=== PATIENT | female | born 1955 | race Caucasian/White ===

== ENCOUNTER 2021-09-18 10:38 | Outpatient (CLI) | payer OTHER, SELFPAY ==
[2021-09-18 17:12] LABS: Albumin* 3.9 g/dL (3.3-5.0); Chloride* 102 mmol/L (96-114); Sodium* 135 mmol/L (135-149)
[2021-09-18 17:13] LABS: Potassium* 3.8 mmol/L (3.6-5.1)
[2021-09-18 17:15] LABS: Alanine Aminotransferase* 12 U/L (4-35); Alkaline Phosphatase* 98 U/L (40-150); Aspartate Amino Transferase* 22 U/L (12-35); Bilirubin Total* 0.5 mg/dL (0.1-1.5); Blood Urea Nitrogen* 21 mg/dL (7-30); Carbon Dioxide* 32 mmol/L (20-32); Creatinine* 0.9 mg/dL (0.5-1.5); Estimated Glomerular Filt Rate 71 ml/min; Glucose* 81 mg/dL (60-115); Total Protein* 6.8 g/dL (6.0-8.3)
== END 2021-09-18 10:39 | disposition home or self-care (01) ==
LOC: LONREF 10:40
PROVIDERS: PCP Family Medicine; Visit Provider Nurse Practitioner Family
DX: M54.9 Dorsalgia, unspecified (principal)
CPT/HCPCS: 80053

== ENCOUNTER 2022-04-09 10:46 | Outpatient (CLI) | payer OTHER, SELFPAY ==
[2022-04-09 17:26] LABS: Albumin* 4.1 g/dL (3.3-5.0)
[2022-04-09 17:27] LABS: Chloride* 104 mmol/L (96-114); Potassium* 4.4 mmol/L (3.6-5.1); Sodium* 138 mmol/L (135-149)
[2022-04-09 17:29] LABS: Aspartate Amino Transferase* 23 U/L (12-35); Bilirubin Total* 0.7 mg/dL (0.1-1.5); Blood Urea Nitrogen* 16 mg/dL (7-30); Carbon Dioxide* 28 mmol/L (20-32); Cholesterol* 251 mg/dL (90-199); Creatinine* 0.9 mg/dL (0.5-1.5); Estimated Glomerular Filt Rate 71 ml/min
[2022-04-09 17:30] LABS: Alanine Aminotransferase* 16 U/L (4-35); Alkaline Phosphatase* 91 U/L (40-150); Calcium* 9.1 mg/dL (8.4-10.6); Glucose* 92 mg/dL (60-115); HDL Cholesterol* 89 mg/dL (>=50); LDL Cholesterol Calculated 146 mg/dL (<100); Triglycerides* 79 mg/dL (40-149)
[2022-04-09 18:23] LABS: Vitamin B12* > 1000 pg/mL (243-894)
== END 2022-04-09 10:47 | disposition home or self-care (01) ==
PROVIDERS: PCP Nurse Practitioner Family; Visit Provider Nurse Practitioner Family
DX: Z01.419 Encounter for gynecological examination (general) (routine) without abnormal findings (principal); I10 Essential (primary) hypertension; E53.8 Deficiency of other specified B group vitamins; E78.5 Hyperlipidemia, unspecified; F32.A Depression, unspecified
CPT/HCPCS: 80053; 80061; 82607

== ENCOUNTER 2022-06-09 20:48 | Emergency (ER) | payer OTHER, SELFPAY ==
[2022-06-09 20:56] VITALS: BP 112/93; PULSE 95; RESP 18; TEMP 36.8; O2SAT 96; BMI 29.2
--- NOTE | 2022-06-09 21:23 | ED.GENADULT ---
HPI - General Adult General Time Seen by Provider: 21:23 Date Seen: 06/09/22 Chief complaint: Cough Stated complaint: cough, short of breath Time Seen by Provider: 06/09/22 21:23 Source: patient and RN notes reviewed Mode of arrival: ambulatory Limitations: no limitations History of Present Illness HPI narrative: Liberty is a 66-year-old female coming in with concern of respiratory symptoms and chest congestion for about 3 weeks. She states in the 3 weeks, she has had 2 spells where she has had 3 days of fevers and chills. She seems to a wax and wane and feel better, and then will worsen. The last 3 days she has felt like her chest is more congested. The last 2 weeks she has had some nausea and diminished appetite. She did have some abdominal pain and diarrhea early on but that subsided. She figured this was COVID like illness but did not test at all. She does not have any history of cardiopulmonary issues. Denies any chest pain, no shortness of breath with this. Is feeling tired and fatigued. Related Data Home Medications Medication Instructions Recorded Confirmed BI-EST (ESTRIOL/ESTRADIOL 80/20) topical 04/09/22 Progesterone (30ml) 100MG/ML Cream topical DAILY 04/09/22 Testosterone (30mL) (20mg/ml) cream topical 04/09/22 Previous Rx's Medication Instructions Recorded bupropion HCl 300 mg 24 hr tablet, 300 mg PO QAM #90 tabs 04/09/22 extended release estradiol 10 mcg vaginal tablet 10 mcg vaginal .Twice Weekly #30 04/09/22 tabs hydrochlorothiazide 25 mg tablet 25 mg PO DAILY #90 tabs 04/09/22 lisinopril 10 mg tablet 10 mg PO QDAY #90 tabs 04/09/22 omeprazole 20 mg capsule,delayed 20 mg PO QDAY #90 caps 04/09/22 release simvastatin 20 mg tablet 20 mg PO QHS #90 tabs 04/10/22 Allergies Allergy/AdvReac Type Severity Reaction Status Date / Time No Known Allergies Allergy Unverified 09/18/21 10:00 Review of Systems Status of ROS: Reports: 10 or more systems reviewed and unremarkable except as noted in History and below [facility] Medical History Arthralgia ?M25.50 - Pain in unspecified joint (ICD-10) Epiploic appendagitis ?K63.89 - Other specified diseases of intestine (ICD-10) History of basal cell carcinoma (1997) ?Z85.828 - Personal history of other malignant neoplasm of skin (ICD-10) Vitamin B 12 deficiency ?E53.8 - Deficiency of other specified B group vitamins (ICD-10) Surgical History History of section (1985) ?Z98.891 - History of uterine scar from previous surgery (ICD-10) History of esophagogastroduodenoscopy (EGD) (12/08/17) ?Z98.890 - Other specified postprocedural states (ICD-10) History of loop electrosurgical excision procedure (LEEP) of cervix (2004) ?Z98.890 - Other specified postprocedural states (ICD-10) Family History Family/Other Breast cancer, Onset Age: 40 Depression Father Coronary artery disease Prostate cancer Family history of stroke or transient ischemic attack in father, Onset Age: 60 Paternal Grandmother Schizophrenia Social History Narrative: , retired [employer], 3 adult children Does not drink alcohol Does not exercise Non-smoker, quite age 44, hx 7 pack years Smoking Status: Former smoker Do you use any of these nicotine containing products: None Second hand tobacco smoke exposure: No How often do you have a drink containing alcohol: never How often do you have six or more drinks on one occasion: Never AUDIT-C Alcohol total score: 0 Non-prescribed substance use: denies use Little interest or pleasure in doing things: more than half the days Feeling down, depressed, or hopeless: more than half the days service: No Exam Const: Vital Signs, click to edit/add: Vital Signs - 24 hr 06/09/22 20:56 06/09/22 21:29 06/09/22 22:47 Temperature 98.2 F Pulse Rate [Pulse Oximeter] 95 76 Respiratory Rate 18 18 Blood Pressure [Le ft Upper Arm] 112/93 H 132/82 Pulse Oximetry 96 96 93 Oxygen Delivery Me thod Room Air Room Air Documenting provider has reviewed patient's vital signs: yes Common normals: no apparent distress, average body habitus, oriented x3, no limitations, healthy appearing and alert General appearance: cooperative, comfortable, well kempt and well developed HENMT: Common normals: normocephalic, head/scalp atraumatic, hearing grossly normal bilaterally, external ears normal, external nose normal, nasal mucous membranes and turbinates normal, moist oral mucous membranes, oropharynx normal, dentition normal and gingiva normal Head and scalp: normocephalic and atraumatic Nose: external nose normal and nasal mucous membranes and turbinates normal External ear: external ears normal Eye: Common normals: PERRL, EOMs intact bilaterally, conjunctivae normal and no scleral icterus Conjunctiva: conjunctiva(e) normal Pupil: PERRL Neck & C-Spine: Common normals: full ROM, no lymphadenopathy, supple, no meningeal signs, no JVD and thyroid normal Thyroid: thyroid normal Resp: Common normals: normal respiratory effort, no retractions, no use of accessory muscles and clear to auscultation bilaterally Effort & inspection: able to speak in complete sentences Auscultation: clear to auscultation bilaterally Cardio: Common normals: no JVD, regular rate, regular rhythm, S1 normal heart sound, S2 normal heart sound, no gallops, no clicks, no murmurs and no rub Rate: regular rate Rhythm: regular rhythm Heart sounds: S1 normal and S2 normal GI: Common normals: Normal to inspection, nondistended, normoactive bowel sounds present, soft to palpation, non-tender, no hepatosplenomegaly and no masses Palpation: soft and no hepatosplenomegaly Extremity: Common normals: normal to inspection, full ROM and no pedal edema Neuro: Common normals: oriented x3 Sensorium/orientation: alert Meningeal signs: no meningeal signs Psych: Appearance: well kempt Course Course Hospital Course: Nursing staff swab patient on arrival. Given her complaints of congestion, will consider cardiopulmonary sources including infectious etiology. Will look at a two view chest x-ray, EKG and full complement of labs. Will watch her on pulse oximetry while she is here. Reevaluation(s) Reevaluation #1: Reviewed with patient that she is covid positive, other labs and cxr are reassuring. Reviewed that given symptoms for about 3 weeks now, do not feel that Paxlovid is not indicated. She does not require antibiotics. Time: 22:51 Vital Signs Vital signs: Initial Vital Signs Temperature 98.2 F 06/09/22 20:56 Temperature Source Temporal Artery Scan 06/09/22 20:56 Pulse Rate 95 06/09/22 20:56 Pulse Rhythm Regular 06/09/22 20:56 Respiratory Rate 18 06/09/22 20:56 Blood Pressure 112/93 H 06/09/22 20:56 Blood Pressure Mean 99 06/09/22 20:56 Pulse Oximetry 96 06/09/22 20:56 Oxygen Delivery Method Room Air 06/09/22 20:56 Vital Signs Temperature 98.2 F 06/09/22 20:56 Pulse Rate 95 06/09/22 20:56 Respiratory Rate 18 06/09/22 20:56 Blood Pressure 112/93 H 06/09/22 20:56 Pulse Oximetry 96 06/09/22 20:56 Oxygen Delivery Method Room Air 06/09/22 20:56 Temperature 98.2 F 06/09/22 20:56 Pulse Rate 76 06/09/22 22:47 Respiratory Rate 18 06/09/22 22:47 Blood Pressure 132/82 06/09/22 22:47 Pulse Oximetry 93 06/09/22 22:47 Oxygen Delivery Method Room Air 06/09/22 22:47 Medical Decision Making Lab Data Lab results reviewed: Yes I reviewed the patient's lab results Labs: Lab Results 06/09/22 06/09/22 Range/Units 21:04 21:46 WBC 4.72 (4.50-11.00) K/uL RBC 5.36 H (4.00-5.20) m/uL Hgb 15.9 (12.0-16.0) gm/dL Hct 46.7 (33.0-51.0) % MCV 87 (80-100) fL MCH 30 (26-34) pg MCHC 34 (32-36) gm/dL RDW Coeff of Brett 11.8 (11.5-15.5) % Plt Count 127 L (140-440) K/uL Neut % (Auto) 63.3 (42.0-72.0) % Lymph % (Auto) 26.9 (20-44) % Piatt % (Auto) 8.3 (0.0-11.0) % Eos % (Auto) 1.1 (0.0-7.0) % Baso % (Auto) 0.2 (0.0-3.0) % Neut # (Auto) 2.99 (1.7-7.0) K/uL Lymph # (Auto) 1.27 (0.90-2.90) K/uL Piatt # (Auto) 0.40 (0.00-0.90) K/UL Eos # (Auto) 0.05 (0.00-0.50) K/uL Baso # (Auto) 0.01 (0.00-0.30) K/uL Sodium 134 L (135-149) mmol/L Potassium 3.6 (3.6-5.1) mmol/L Chloride 99 (96-114) mmol/L Carbon Dioxide 29 (20-32) mmol/L BUN 13 (7-30) mg/dL Creatinine 1.0 (0.5-1.5) mg/dL Estimated Creat Clear 45.78 Estimated GFR 62 ml/min Glucose 107 (60-115) mg/dL Lactate 1.1 (0.5-1.9) mmol/L Calcium 8.8 (8.4-10.6) mg/dL Total Bilirubin 0.6 (0.1-1.5) mg/dL AST 69 H (12-35) U/L ALT 65 H (4-35) U/L Alkaline Phosphatase 87 (40-150) U/L C-Reactive Protein 0.8 (0.5-1.0) mg/dL NT-Pro-B Natriuret Pep < 20 pg/mL Total Protein 7.2 (6.0-8.3) g/dL Albumin 4.2 (3.3-5.0) g/dL Lipase 205 (23-300) U/L SARS-CoV-2 (PCR) POSITIVE SARS-CoV-2 A (Negative) Influenza Type A (PCR) Negative PCR FLU A (Negative) Influenza Type B (PCR) Negative PCR FLU B (Negative) RSV (PCR) Negative PCR RSV (Negative) POC Troponin I 0.00 L (0.01-0.04) ng/ml Imaging Data Chest x-ray: Attestation: I have reviewed the pertinent imaging results. My impression: I see no acute pathology on my preliminary review. Radiologist's impression: Patient: LUIZ YATES Facility:?[facility] Patient ID:?[id number] Site Patient ID:?[id number]. Site :?[id number] Study:?XRay Chest PORTABLE-06/09/2022 10:06:52 PM Ordering Physician:Wallace Ramírez Final Report: HISTORY: Cough and congestion for 3 weeks. COMPARISON: None available FINDINGS: A portable erect AP view of the chest was obtained at 21 52 hours. The lungs are clear. No focal or diffuse infiltrates are present. The heart is normal in size. The mediastinum is normal in appearance. The osseous structures are normal in appearance for the patient`s age. IMPRESSION: Normal portable chest single view. Dictated by Robert Sorto MD @ 06/09/2022 10:44:19 PM (Electronic Signature) ECG Data Attestation: I personally reviewed and interpreted this ECG as follows: (Sinus rhythm, 70 beats per minute. Nonspecific ST/T-wave abnormality but no definitive ischemia. QT corrected 405 milliseconds.) Prior ECG tracings: not available for review Critical Care Time Critical Care Time Critical Care Time: No Discharge Plan Discharge Clinical Impression: COVID-19 Patient Disposition: Home, Self-Care Condition: Stable Instructions: COVID-19 (Coronavirus Disease 2019) (ED), Long COVID (ED) Additional Instructions: Can use [id number] medicines of choice for symptom control. If you are not improving over the next 1-2 weeks, do recommend recheck in clinic with your primary care provider. If you have concerns that you are worsening, develops increased fevers, difficulty breathing or shortness of breath, chest pain, do recommend re-evaluation. You should plan on attempting to isolate from people until you are improving. Activity Level: Activity as Tolerated Prescriptions: No Action Progesterone (30ml) 100MG/ML Cream topical DAILY Rx Instructions: Apply 1 click (0.25mL) topically to inner or thigh every day. rub in thoroughly. BI-EST (ESTRIOL/ESTRADIOL 80/20) topical Rx Instructions: Apple 1 click (0.25mL) topically to inner arm or thigh every day. RUB IN THOROUGHLY. Testosterone (30mL) (20mg/ml) cream topical Rx Instructions: Apple 1 click (0.25mL) topically to inner arm or thigh every day. RUB IN THOROUGHLY. bupropion HCl 300 mg tablet extended release 24 hr 300 mg PO QAM Qty: 90 1RF hydrochlorothiazide 25 mg tablet 25 mg PO DAILY Qty: 90 3RF lisinopril 10 mg tablet 10 mg PO QDAY Qty: 90 3RF omeprazole 20 mg capsule,delayed release(DR/EC) 20 mg PO QDAY Qty: 90 1RF estradiol 10 mcg tablet 10 mcg vaginal .Twice Weekly Qty: 30 0RF simvastatin 20 mg tablet 20 mg PO QHS Qty: 90 3RF Follow Up/Referrals: Grecia Tipton CNP [Primary Care Provider] - Stand Alone Forms: MyHealth Info Instructions
[2022-06-09 21:29] VITALS: O2SAT 96
--- NOTE | 2022-06-09 21:29 | CRLHL7_ITS ---
For Patients: As a result of the Century Cures Act, medical imaging exams and procedure reports are released immediately into your electronic medical record. You may view this report before your referring provider. If you have questions, please contact your health care provider. HISTORY: Cough and congestion for 3 weeks. COMPARISON: None available FINDINGS: A portable erect AP view of the chest was obtained at 21 52 hours. The lungs are clear. No focal or diffuse infiltrates are present. The heart is normal in size. The mediastinum is normal in appearance. The osseous structures are normal in appearance for the patient`s age. IMPRESSION: Normal portable chest single view. Dictated by Robert Sorto MD @ 06/09/2022 10:44:19 PM (Electronically Signed)
[2022-06-09 21:53] LABS: Lactate* 1.1 mmol/L (0.5-1.9)
[2022-06-09 21:54] LABS: Basophils Absolute Auto 0.01 K/uL (0.00-0.30); Basophils Percent Auto 0.2 % (0.0-3.0); Eosinophils Absolute Auto 0.05 K/uL (0.00-0.50); Eosinophils Percent Auto 1.1 % (0.0-7.0); Hematocrit 46.7 % (33.0-51.0); Hemoglobin* 15.9 gm/dL (12.0-16.0); Immature Granulocytes Abs Auto 0.01 K/uL (0.00-0.30); Immature Granulocytes Pct Auto 0.2 %; Lymphocytes Absolute Auto 1.27 K/uL (0.90-2.90); Lymphocytes Percent Auto 26.9 % (20-44); Mean Corpuscular HGB Conc 34 gm/dL (32-36); Mean Corpuscular Hemoglobin 30 pg (26-34); Mean Corpuscular Volume 87 fL (80-100); Monocytes Percent Auto 8.3 % (0.0-11.0); Neutrophils Absolute Auto 2.99 K/uL (1.7-7.0); Neutrophils Percent Auto 63.3 % (42.0-72.0); Platelet Count* 127 K/uL (140-440); RDW Coefficient of Variation % 11.8 % (11.5-15.5); Red Blood Count 5.36 m/uL (4.00-5.20); White Blood Count* 4.72 K/uL (4.50-11.00)
[2022-06-09 21:57] LABS: PCR FLU A Negative PCR FLU A (Negative); SARS PCR* POSITIVE SARS-CoV-2 (Negative)
[2022-06-09 21:58] LABS: PCR FLU B Negative PCR FLU B (Negative); PCR RSV Negative PCR RSV (Negative)
[2022-06-09 22:15] LABS: Albumin* 4.2 g/dL (3.3-5.0); Chloride* 99 mmol/L (96-114)
[2022-06-09 22:16] LABS: Potassium* 3.6 mmol/L (3.6-5.1); Sodium* 134 mmol/L (135-149)
[2022-06-09 22:18] LABS: Alkaline Phosphatase* 87 U/L (40-150); Aspartate Amino Transferase* 69 U/L (12-35); Bilirubin Total* 0.6 mg/dL (0.1-1.5); Carbon Dioxide* 29 mmol/L (20-32); Est. Creatinine Clearance* 45.78; Estimated Glomerular Filt Rate 62 ml/min; Total Protein* 7.2 g/dL (6.0-8.3)
[2022-06-09 22:19] LABS: Alanine Aminotransferase* 65 U/L (4-35); Blood Urea Nitrogen* 13 mg/dL (7-30); Calcium* 8.8 mg/dL (8.4-10.6); Glucose* 107 mg/dL (60-115); Lipase* 205 U/L (23-300)
[2022-06-09 22:21] LABS: C Reactive Protein* 0.8 mg/dL (0.5-1.0)
[2022-06-09 22:22] LABS: Slide Review Reflex No
[2022-06-09 22:31] LABS: NT Pro B Type NatriureticPept* < 20 pg/mL
[2022-06-09 22:47] VITALS: BP 132/82; PULSE 76; RESP 18; O2SAT 93
== END 2022-06-09 23:01 | disposition home or self-care (01) ==
PROVIDERS: Emergency Provider Family Medicine; PCP Nurse Practitioner Family
DX: U07.1 COVID-19 (principal)
CPT/HCPCS: 36415; 71045; 80053; 83605; 83690; 83880; 84484; 85025; 86140; 87631; 93005; 94761; 99284; 99285

== ENCOUNTER 2022-08-20 10:35 | Outpatient (CLI) | payer OTHER, SELFPAY ==
--- NOTE | 2022-08-20 10:45 | CRLHL7_ITS ---
For Patients: As a result of the Cures Act, medical imaging exams and procedure reports are released immediately into your electronic medical record. You may view this report before your referring provider. If you have questions, please contact your health care provider. BILATERAL SCREENING MAMMOGRAM WITH COMPUTER-AIDED DETECTION AND TOMOSYNTHESIS TECHNIQUE: CC and MLO views were obtained. These mammographic images have been obtained using full-field digital technique. These mammographic images were interpreted with the benefit of computer-aided detection. Breast Tomosynthesis was used in this interpretation. COMPARISON FILM: 03/20/21, 05/01/19, 04/12/17. FINDINGS: There are scattered areas of fibroglandular density IMPRESSION: There is no radiographic evidence for malignancy. ASSESSMENT: BI-RADS Category 1: Negative RECOMMENDATION: Routine screening mammogram in 1 year. A lay language report of this examination will be provided to the patient. Donta Carlos M.D. Diagnostic Radiologist [email or web address]/yadi Transcribed: 6:36 p.mImelda grullon/Dictated by: Donta Carlos MD @ 08/20/2022 1:06:00 PM (Electronically Signed)
== END 2022-08-20 10:36 | disposition home or self-care (01) ==
LOC: MAMMO 10:36
PROVIDERS: PCP Nurse Practitioner Family; Visit Provider Nurse Practitioner Family
DX: Z12.31 Encounter for screening mammogram for malignant neoplasm of breast (principal)
CPT/HCPCS: 77063; 77067

== ENCOUNTER 2023-05-28 08:10 | Outpatient (CLI) | payer OTHER, SELFPAY ==
--- NOTE | 2023-05-28 09:19 | W.ANESCHARGE ---
Anesthesia Charges Start Date/Time Anesthesia Start Date: 05/28/23 Anesthesia Start Time: 09:02 Stop Date/Time Anesthesia Stop Date: 05/28/23 Anesthesia Stop Time: 09:17
== END 2023-05-28 08:11 | disposition home or self-care (01) ==
LOC: OP CLINIC 08:11
PROVIDERS: PCP Nurse Practitioner Family; Visit Provider Internal Medicine
DX: R12 Heartburn (principal); K44.9 Diaphragmatic hernia without obstruction or gangrene
CPT/HCPCS: 00731; 43239; 88305; J2704

== ENCOUNTER 2023-09-30 09:41 | Outpatient (CLI) | payer OTHER, SELFPAY ==
--- NOTE | 2023-09-30 10:20 | CRLHL7_ITS ---
For Patients: As a result of the Century Cures Act, medical imaging exams and procedure reports are released immediately into your electronic medical record. You may view this report before your referring provider. If you have questions, please contact your health care provider. BILATERAL SCREENING MAMMOGRAM WITH COMPUTER-AIDED DETECTION AND TOMOSYNTHESIS TECHNIQUE: CC and MLO views were obtained. These mammographic images have been obtained using full-field digital technique. These mammographic images were interpreted with the benefit of computer-aided detection. Breast Tomosynthesis was used in this interpretation. COMPARISON FILM: 08/20/22, 03/20/21, 05/01/19. FINDINGS: There are scattered areas of fibroglandular density IMPRESSION: There is no radiographic evidence for malignancy. ASSESSMENT: BI-RADS Category 1: Negative RECOMMENDATION: Routine screening mammogram in 1 year. A lay language report of this examination will be provided to the patient. Donta Carlos M.D. Diagnostic Radiologist [email or web address] HERNESTO/Dictated by: Donta Carlos MD @ 09/30/2023 12:28:00 PM (Electronically Signed)
== END 2023-09-30 09:42 | disposition home or self-care (01) ==
LOC: MAMMO 09:42
PROVIDERS: PCP Nurse Practitioner Family; Visit Provider Obstetrics & Gynecology
DX: Z12.31 Encounter for screening mammogram for malignant neoplasm of breast (principal)
CPT/HCPCS: 77063; 77067

== ENCOUNTER 2023-10-08 12:00 | Outpatient (CLI) | payer OTHER, SELFPAY | END 2023-10-08 12:01 | disposition home or self-care (01) | PROVIDERS: PCP Nurse Practitioner Family; Visit Provider Obstetrics & Gynecology | DX: R53.83 Other fatigue (principal); T38.5X5A Adverse effect of other estrogens and progestogens, initial encounter | CPT/HCPCS: 84443 ==

== ENCOUNTER 2024-10-30 13:28 | Outpatient (CLI) | payer OTHER, SELFPAY ==
--- NOTE | 2024-10-30 13:40 | CRLHL7_ITS ---
For Patients: As a result of the Century Cures Act, medical imaging exams and procedure reports are released immediately into your electronic medical record. You may view this report before your referring provider. If you have questions, please contact your health care provider. INDICATION: BILATERAL SCREENING MAMMOGRAM, ASYMPTOMATIC 69 Y/O FEMALE COMPARISON: 09/30/2023, 08/20/2022, 03/20/2021 TECHNIQUE: Digital mammogram in CC and MLO projections including computer-aided detection (CAD) and tomosynthesis. BREAST COMPOSITION: The breasts are almost entirely fatty. FINDINGS: No suspicious findings. ASSESSMENT: BI-RADS 2 Benign RECOMMENDATION: Annual screening mammogram. A lay language report of this examination will be provided to the patient. Dictated by: Donta Carlos MD @ 10/31/2024 09:57:24 (Electronically Signed)
== END 2024-10-30 13:29 | disposition home or self-care (01) ==
LOC: MAMMO 13:28
PROVIDERS: PCP Nurse Practitioner Family; Visit Provider Nurse Practitioner Family
DX: Z12.31 Encounter for screening mammogram for malignant neoplasm of breast (principal)
CPT/HCPCS: 77063; 77067

== ENCOUNTER 2024-11-10 10:51 | Outpatient (CLI) | payer OTHER, SELFPAY | END 2024-11-10 10:52 | disposition home or self-care (01) | LOC: LKVREF 10:52 | PROVIDERS: PCP Nurse Practitioner Family; Visit Provider Nurse Practitioner Family | DX: E78.5 Hyperlipidemia, unspecified (principal); I10 Essential (primary) hypertension | CPT/HCPCS: 80053; 80061 ==

== ENCOUNTER 2024-11-23 13:02 | Outpatient (CLI) | payer OTHER, SELFPAY ==
--- NOTE | 2024-11-23 14:00 | CRLHL7_ITS ---
For Patients: As a result of the Century Cures Act, medical imaging exams and procedure reports are released immediately into your electronic medical record. You may view this report before your referring provider. If you have questions, please contact your health care provider. DXA BONE MINERAL DENSITY STUDY Current height (in): 63. Weight (lb): 180. Menopause age: 45. Ethnicity: White. 1. Have you had a previous hip or vertebral fracture? No. 2. Have you had any fractures during your adult life which did not result from significant trauma (e.g., auto accident)? No. 3. Did either of your parents have a hip fracture? No. 4. Do you smoke? No. 5. Have you ever taken Glucocorticoids? No. 6. Do you have rheumatoid arthritis? No. 7. Do you have secondary osteoporosis? No. 8. Do you drink 3 or more alcoholic drinks per day? No. 9. Are you being treated for osteoporosis? No. 10. Have you ever taken any of the following medications: Actonel, Evista, Fosamax, Miacalcin, Reclast, Boniva, Forteo, HRT (i.e. estrogen/hormone therapy), Protelos, Prolia, Vitamin D, Calcium, other ??? please specify. ANSWER: No. 11. Do you have any of the following medical conditions: Anorexia or bulimia, asthma or emphysema, end stage renal disease, hyperparathyroidism, any seizure disorders, cancer, inflammatory bowel diseases, hysterectomy, other ??? please specify. ANSWER: No. 12. What was your maximum height (inches)? 63. 13. Do you perform weight bearing exercise regularly? No. 14. Do you regularly consume dairy products? No. 15. Do you drink caffeinated beverages? Yes. 16. At what age did your period start? 12. 17. Are you premenopausal? No. 18. How many full term pregnancies have you had? 2. 19. Have you ever missed your period for more than 6 months in a row (not including or menopause)? No. TECHNIQUE: Bone mineral density study was performed using the [employer]. FINDINGS: The results of the study expressed as bone mineral density (BMD) are as follows: Lumbar spine L1 to L4: BMD: 1.112 g/cm2. T-score: 0.6. Z-score: 2.6. Neck Left: BMD: 0.680 g/cm2. T-score: -1.5. Z-score: 0.2. Right: BMD: 0.612 g/cm2. T-score: -2.1. Z-score: -0.4. Total Left: BMD: 0.926 g/cm2. T-score: -0.1. Z-score: 1.3. Right: BMD: 0.846 g/cm2. T-score: -0.8. Z-score: 0.7. IMPRESSION: Normal bone density. COMPARISON: Compared with scan of 04/12/2017, the bone mineral density has decreased by 1.3 percent at the spine and increased by 5.5 percent at the hip. FRAX 10-year Fracture Risk Major Osteoporotic Fracture: 12 percent Hip Fracture: 2.2 percent Reported Risk Factors: [place] () Neck BMD= 0.612, BMI=31.9. Donta Carlos M.D. Diagnostic Radiologist [email or web address] THADDEUS/michael DW/Dictated by: Donta Carlos MD @ 11/24/2024 10:29:00 AM (Electronically Signed)
== END 2024-11-23 13:03 | disposition home or self-care (01) ==
LOC: RAD 13:03
PROVIDERS: PCP Nurse Practitioner Family; Visit Provider Nurse Practitioner Family
DX: Z13.820 Encounter for screening for osteoporosis (principal)
CPT/HCPCS: 77080